=== PATIENT | female | born 1975 | race Caucasian/White ===

== ENCOUNTER → 2021-01-26 09:29 | Outpatient (BNVA) | payer OTHER, SELFPAY | PROVIDERS: Family Provider Internal Medicine; Visit Provider Internal Medicine | DX: R76.8 Other specified abnormal immunological findings in serum (principal); R53.83 Other fatigue; M25.50 Pain in unspecified joint; Z11.59 Encounter for screening for other viral diseases; D72.819 Decreased white blood cell count, unspecified; E11.22 Type 2 diabetes mellitus with diabetic chronic kidney disease; N18.9 Chronic kidney disease, unspecified; Z79.84 Long term (current) use of oral hypoglycemic drugs; F32.A Depression, unspecified; G47.00 Insomnia, unspecified; Z87.891 Personal history of nicotine dependence | CPT/HCPCS: 36415; 80053; 81001; 82550; 82607; 82728; 82784; 83516; 83540; 84100; 84425; 84443; 85025; 85651; 86140; 86704; 86803; 87340; 99204 ==

== ENCOUNTER 2021-02-05 09:32 | Outpatient (CLI) | payer OTHER, SELFPAY ==
--- NOTE | 2021-02-05 09:36 | XR_ITS ---
WS: [email or web address] FOOT LEFT TECHNIQUE: 2 views of the left foot CLINICAL INFORMATION: M25.50 - Pain in unspecified joint COMPARISON: None. FINDINGS: No evidence of acute fracture or dislocation. Normal tarsal metatarsal alignment. Normal calcaneus. N ormal visualized talar dome. Mild IP joint narrowing. Osteopenia. Achilles insertion enthesophyte. IMPRESSION: No significant erosive changes.
--- NOTE | 2021-02-05 09:36 | XR_ITS ---
WS: [email or web address] FOOT RIGHT TECHNIQUE: 2 views of the right foot CLINICAL INFORMATION: M25.50 - Pain in unspecified joint COMPARISON: None. FINDINGS: No evidence of acute fracture or dislocation. Normal tarsal metatarsal alignment. Normal calcaneus. N ormal visualized talar dome. IP joint narrowing. Osteopenia. XR/XR foot RT 2V [id number] IMPRESSION: No significant erosive changes.
--- NOTE | 2021-02-05 10:00 | XR_ITS ---
WS: [email or web address] TECHNIQUE: 2 views of the left hand CLINICAL INFORMATION: N18.9 - Chronic kidney disease, unspecified COMPARISON: None. FINDINGS: Normal metacarpals. Normal MCP joint. Metacarpal heads are normal in appearance. Mild narrowing PIP a nd DIP joints. No evidence of acute fracture or dislocation. Postoperative changes plate and screw fi xation distal radius. Chronic ulna styloid avulsion. Radiocarpal joint: Mild narrowing Carpal bones: Normal. XR/XR hand LT 2V [id number] IMPRESSION: No significant erosive changes.
--- NOTE | 2021-02-05 10:15 | XR_ITS ---
WS: [email or web address] TECHNIQUE: 2 views of the right hand CLINICAL INFORMATION: N18.9 - Chronic kidney disease, unspecified COMPARISON: None. FINDINGS: Normal metacarpals. Normal MCP joint. Metacarpal heads are normal in appearance. Mild narrowing PIP a nd DIP joints. No evidence of acute fracture or dislocation. Radiocarpal joint: Mild narrowing Carpal bones: Normal. XR/XR hand RT 2V [id number] IMPRESSION: No significant erosive changes.
--- NOTE | 2021-02-05 10:30 | XR_ITS ---
WS: [email or web address] LUMBAR SPINE TECHNIQUE: 3 views of the lumbar spine CLINICAL INFORMATION: N18.9 - Chronic kidney disease, unspecified COMPARISON: None. FINDINGS: Mild lumbar curve convex right. Cholecystectomy clips. Pelvic phleboliths. Osteopenia. Slight retroli sthesis L2 on L3 and L3 on L4. Disc space narrowing worse L5-S1. Aortic calcification. Mild facet art hropathy L5-S1. XR/XR lumbar spine 2-3V* [id number] IMPRESSION: 1. Mild lumbar curve convex right. 2. Slight retrolisthesis L2 on L3 and L3 on L4. 3. Disc space narrowing worse L5-S1.
--- NOTE | 2021-02-05 10:45 | XR_ITS ---
WS: [email or web address] CERVICAL SPINE FLEXION EXTENSION TECHNIQUE: 3 views of the cervical spine: lateral neutral, flexion and extension views. CLINICAL INFORMATION: N18.9 - Chronic kidney disease, unspecified COMPARISON: None. FINDINGS: Normal cervical alignment on the neutral view. Normal C1-articulation. No significant instability on flexion-extension. Posterior elements are normal. No other significant findings. XR/XR cervical spine fl/ex [id number] IMPRESSION: No significant instability on flexion-extension.
== END 2021-02-05 09:33 | disposition home or self-care (01) ==
PROVIDERS: Visit Provider Internal Medicine
DX: N18.9 Chronic kidney disease, unspecified (principal); D72.819 Decreased white blood cell count, unspecified; E11.9 Type 2 diabetes mellitus without complications; M25.50 Pain in unspecified joint; R53.83 Other fatigue; R76.8 Other specified abnormal immunological findings in serum
CPT/HCPCS: 72040; 72100; 73120; 73620

== ENCOUNTER → 2021-02-12 13:41 | Outpatient (BNVA) | payer OTHER, MEDICAID, SELFPAY | PROVIDERS: Visit Provider Internal Medicine | DX: R76.8 Other specified abnormal immunological findings in serum (principal); R53.83 Other fatigue; M25.50 Pain in unspecified joint; R21 Rash and other nonspecific skin eruption; D72.819 Decreased white blood cell count, unspecified; E53.8 Deficiency of other specified B group vitamins; Z87.891 Personal history of nicotine dependence | CPT/HCPCS: 99214 ==

== ENCOUNTER 2021-03-01 13:34 | Outpatient (CLI) | payer OTHER, SELFPAY ==
--- NOTE | 2021-03-01 13:44 | MM_ITS ---
WS: [email or web address] Bilateral screening digital mammogram, 03/01/2021 Clinical Data: SCREENING Comparison: None. Findings: The breast parenchymal pattern shows fibroglandular tissue No spiculated masses or clustered calcific ations are seen. There are no secondary signs of carcinoma. There are scattered benign calcifications throughout both breasts. There are lymph nodes in both axilla. MM/[id number] Impression: 1. Negative bilateral mammogram with no prior exam for review. 2. Recommend annual screening mammograms. BIRADS: 1-Negative FOLLOW UP: 1 Year Follow-up The CAD die drawing checker was used.
== END 2021-03-01 13:35 | disposition home or self-care (01) ==
PROVIDERS: PCP Nurse Practitioner Family; Visit Provider Nurse Practitioner Family
DX: Z12.31 Encounter for screening mammogram for malignant neoplasm of breast (principal)
CPT/HCPCS: 77067

== ENCOUNTER 2021-09-07 11:04 | Outpatient (CLI) | payer BC, MEDICAID, SELFPAY | END 2021-09-07 11:05 | disposition home or self-care (01) | LOC: LAB 11:04 | PROVIDERS: PCP Nurse Practitioner Family; Visit Provider Internal Medicine | DX: Z01.89 Encounter for other specified special examinations (principal) | CPT/HCPCS: 36415; 80053; 85025; 85651; 86140 ==

== ENCOUNTER → 2021-10-26 10:23 | Outpatient (BNVA) | payer BC, MEDICAID, SELFPAY | PROVIDERS: PCP Nurse Practitioner Family; Visit Provider Internal Medicine Cardiovascular Disease | DX: I10 Essential (primary) hypertension (principal); I25.119 Atherosclerotic heart disease of native coronary artery with unspecified angina pectoris; Z95.5 Presence of coronary angioplasty implant and graft; F17.200 Nicotine dependence, unspecified, uncomplicated | CPT/HCPCS: 99214 ==